=== PATIENT | male | born 1985 | race American Indian/Alaskan Native ===

== ENCOUNTER 2017-05-18 12:52 | Day surgery (SDC) | payer MEDICAID ==
[2017-05-18] MEDS ORDERED: NACL BACTERIOSTATIC INFILTRATI ONE (14:51)
--- NOTE | 2017-05-18 15:00 | Anesthesia Consultation ---
Anesthesia Consult and Med Hx - Airway Anesthetic Teeth Evaluation: Good ROM Head & Neck: Adequate Mental/Hyoid Distance: Adequate Mallampati Class: Class II Intubation Access Assessment: Good - Pulmonary Exam CTA: Yes - Cardiac Exam Cardiac Exam: RRR - Pre-Operative Health Status ASA Pre-Surgery Classification: ASA3 Proposed Anesthetic Plan: MAC - Pulmonary Hx Smoking: Yes (4 CIG/DAY X10 YEARS) Hx Sleep Apnea: (SLEEP STUDY 05/17/17) - Cardiovascular System Hx Hypertension: Yes - Central Nervous System Hx Psychiatric Problems: No - Other Systems Hx Alcohol Use: Yes (SPECIAL OCCASIONS) Hx Substance Use: No Hx Cancer: No
[2017-05-18] MEDS ORDERED: XYLOCAINE 1% 20 mL ONE ×2 (15:01→16:08)
[2017-05-18] MEDS ORDERED: MARCAINE 0.5% 30 ML INFILTRATI ONE ×2 (15:01→16:08)
--- NOTE | 2017-05-18 15:01 | Anesthesia Day of Surgery ---
Anesthesia Day of Surgery - Day of Surgery Patient Examined: Yes Patient H&P Reviewed: Yes Patient is NPO: Yes
[2017-05-18] MEDS ORDERED: ZOFRAN IV PRN (15:02)
[2017-05-18] MEDS ORDERED: DILAUDID IV PRN (15:02)
[2017-05-18] MEDS ORDERED: NACL 0.9% 1000 ML 1,000 ML ONE (15:12)
[2017-05-18] MEDS ORDERED: NACL 0.9% 1000 ML 1,000 ML IV SCH (16:00)
[2017-05-18] MEDS ORDERED: ANCEF/STERILE WATER 2 GM/20 ML IV NR (16:00)
[2017-05-18] MEDS ORDERED: DIPRIVAN 10 MG/ML IV ONE ×2 (16:03→16:36)
[2017-05-18] MEDS ORDERED: XYLOCAINE MPF 2% ONE (16:12)
[2017-05-18] MEDS ORDERED: MARCAINE 0.5% INFILTRATI ONE (16:24)
[2017-05-18] MEDS ORDERED: XYLOCAINE 1% 20 mL INFILTRATI ONE (16:24)
--- NOTE | 2017-05-18 16:53 | Discharge Summary ---
Short Stay Discharge Plan Activity: advance as tolerated Diet: regular Wound: per your surgeon's advice Follow up with: DORI HARRY MD [Primary Care Provider] - 7 Days
[2017-05-18] MEDS ORDERED: PERCOCET 5/325 PO PRN (17:17)
[2017-05-18 17:34] VITALS: BP 125/89
[2017-05-18] MEDS ORDERED: TYLENOL PO PRN (17:43)
--- NOTE | 2017-05-18 19:24 | Post Anesthesia Evaluation ---
- Post Anesthesia Evaluation Patient Participated: Yes Airway Patent: Yes Stable Respiratory Function: Yes Nausea/Vomiting: No Temp > 96.8F: Yes Pain Manageable: Yes Adequeate Hydration: Yes Anesthesia Complications: No
--- NOTE | 2017-05-18 19:32 | Operative Report ---
PREOPERATIVE DIAGNOSIS: Mass, posterior neck, right side. POSTOPERATIVE DIAGNOSIS: Mass, posterior neck, right side. Large inclusion cysts. ANESTHESIA: Local, used for that purpose about 6 mL of 1% Xylocaine and 0.25% Marcaine. FINDINGS: The patient had a mass, it looks like an inclusion cyst to me, inclusion cyst about 2 x 2 x 2 cm, located in the subcutaneous tissue on the right lower neck area posteriorly. DESCRIPTION OF PROCEDURE: With the patient in the prone position, cleaned and draped in the usual fashion. I infiltrated the area with the above-mentioned anesthetic and then a spindle shaped incision was performed on it deep subcutaneous tissue. All the mass was removed in toto. We had good hemostasis using caudal cautery and then the wound was closed in 1 layer [id number] fashion using for that purpose 2-0 nylon and the bandage. The patient was then transferred to the recovery room in good condition. JOB# [id number] [facility]/DAWOOD
--- NOTE | 2017-05-18 21:09 | Discharge Summary ---
FINAL DIAGNOSIS: Cyst, right posterior neck. HOSPITAL COURSE: This man was seen in my office about 4 days ago because of the above. He has been having this for about 3-4 years. It is giving him some pain at the present time. So, this was done under local standby anesthesia and a bandage was applied. The patient was then transferred to the recovery room in good condition. I asked his that he sees me in about 2 weeks to remove his stitches in the office. It looks like an inclusion cyst to me. DIET: Ad martha. JOB# [id number] [facility]/DAWOOD MTDD
== END 2017-05-18 12:53 | disposition home or self-care (01) ==
LOC: OR 12:52
PROVIDERS: ATTEND Surgery
DX: L72.0 Epidermal cyst (principal); I10 Essential (primary) hypertension; F17.210 Nicotine dependence, cigarettes, uncomplicated
CPT/HCPCS: 11422; 88304; J0690; J2704; J7030; 88307